=== PATIENT | male | born 1980 | race Caucasian/White ===

== ENCOUNTER 2016-08-10 22:20 | Emergency (ER) | payer MEDICAID ==
[2016-08-10] MEDS ORDERED: PROPARACAINE HCL OPTH 15ML BTL OPTH ONE (22:22)
--- NOTE | 2016-08-10 22:25 | Emergency Department Record ---
History of Present Illness - General Chief complaint: Eye Problem Stated complaint: BURNED EYES WELDING Time Seen by Provider: 08/10/16 22:25 Source: Patient - History of Present Illness Initial comments: "combo welder's ibarra" from earlier today welding while he took his goggles off to see better. No contacts, glasses, "but I need them," no glaucoma or eye disease. chief complaint: Eye pain - Related Data Home Medications Medication Instructions Recorded Confirmed Last Taken Dextroamphetamine/Amphetamine 5 mg PO BID 08/10/16 08/10/16 Unknown [Adderall 5 mg Tablet] Previous Rx's Medication Instructions Recorded Hydrocodone/Acetaminophen [[place] 1 tab PO Q6H PRN #7 tab 08/10/16 5mg/325mg] Allergies Allergy/AdvReac Type Severity Reaction Status Date / Time No Known Drug Allergies Allergy Unverified 08/10/15 08:30 Review of Systems Reviewed: No additional complaints except as noted below Constitutional: Reports: As per HPI. Denies: Chills, Fever, Malaise, Night sweats, Weakness, Weight change Eyes: Reports: As per HPI. Denies: Eye discharge, Eye pain, Photophobia, Vision change ENT: Reports: As per HPI. Denies: Congestion, Dental pain, Ear pain, Epistaxis , Hearing loss, Throat pain Respiratory: Reports: As per HPI. Denies: Cough, Dyspnea, Hemoptysis, Stridor, Wheezes Cardiovascular: Reports: As per HPI. Denies: Arrhythmia, Chest pain, Dyspnea on exertion, Edema, Murmurs, Orthopnea, Palpitations, Paroxysmal nocturnal dyspnea, Rheumatic Fever, Syncope Endocrine: Reports: As per HPI. Denies: Fatigue, Heat or cold intolerance, Polydipsia, Polyuria Gastrointestinal: Reports: As per HPI. Denies: Abdominal pain, Constipation, Diarrhea, Hematemesis, Hematochezia, Melena, Nausea, Vomiting Genitourinary: Reports: As per HPI. Denies: Dysuria, Frequency, Hematuria, Incontinence, Retention, Testicular pain, Testicular mass, Urgency Musculoskeletal: Reports: As per HPI. Denies: Arthralgia, Back pain, Gout, Joint swelling, Myalgia, Neck pain Skin: Reports: As per HPI. Denies: Bruising, Change in color, Change in hair/ nails, Lesions, Pruritus, Rash Neurological: Reports: As per HPI. Denies: Abnormal gait, Confusion, Headache, Numbness, Paresthesias, Seizure, Tingling, Tremors, Vertigo, Weakness Psychiatric: Reports: As per HPI. Denies: Anxiety, Auditory hallucinations, Depression, Homicidal thoughts, Suicidal thoughts, Visual hallucinations Hematological/Lymphatic: Reports: As per HPI. Denies: Anemia, Blood Clots, Easy bleeding, Easy bruising, Swollen glands Past Medical History - SOCIAL HISTORY Smoking Status: Current every day smoker Drug Use: None - RESPIRATORY Hx Respiratory Disorders: No - CARDIOVASCULAR Hx Cardio Disorders: No - NEURO Hx Neuro Disorders: No - GI Hx GI Disorders: No - Hx Genitourinary Disorders: No - ENDOCRINE Hx Endocrine Disorders: No - MUSCULOSKELETAL Hx Musculoskeletal Disorders: No Physical Exam - General General Appearance: Alert, Oriented x3, Cooperative, Severe distress (severe distress from eyes which resolves with alkaine drops; photophobia) - Head Head exam: Normal inspection - Eye Eye exam: Normal appearance, PERRL, Conjunctival injection, EOMI, Other (no fluorescein uptake either eye; no FB, no drainage). negative: Nystagmus, Periorbital swelling, Periorbital tenderness Pupils: Normal accommodation - ENT ENT exam: Normal exam, Mucous membranes moist, Normal external ear exam, Normal orophraynx, TM's normal bilaterally Ear exam: Normal external inspection. negative: External canal tenderness Nasal Exam: Normal inspection. negative: Discharge, Sinus tenderness Mouth exam: Normal external inspection, Tongue normal Teeth exam: Normal inspection. negative: Dental caries Throat exam: Normal inspection. negative: Tonsillar erythema, Tonsillar exudate - Neck Neck exam: Normal inspection, Full ROM. negative: Tenderness - Respiratory Respiratory exam: negative: Respiratory distress - Cardiovascular Cardiovascular Exam: Regular rate, Normal rhythm - GI/Abdominal GI/Abdominal exam: Soft. negative: Tenderness - Rectal Rectal exam: Deferred - exam: Deferred - Extremities Extremities exam: Normal inspection, Full ROM, Normal capillary refill. negative: Tenderness - Back Back exam: Reports: Normal inspection, Full ROM. Denies: Muscle spasm, Rash noted, Tenderness - Neurological Neurological exam: Alert, Normal gait, Oriented X3, Reflexes normal - Psychiatric Psychiatric exam: Normal affect, Normal mood - Skin Skin exam: Dry, Intact, Normal color, Warm Medical Decision Making - Management Options MDM Management: No Additional Work-up Planned Disposition Disposition: Discharge Clinical Impression: Welders' keratitis of both eyes Disposition: Home, Self-Care Condition: (1) Good Instructions: Corneal Flash Ibarra (ED) Additional Instructions: Two drops to each eye of antibiotic eye drops Take norco as directed as needed for pain. Off work. Do not rub eyes. Follow up with Dr. Dumont--call Friday to be rechecked. Prescriptions: Hydrocodone/Acetaminophen [[place] 5mg/325mg] 1 tab PO Q6H PRN #7 tab PRN Reason: Pain - General Referrals: AINSLEY DUMONT [MEDICAL DOCTOR] - Forms: Patient Portal Access
[2016-08-10] MEDS ORDERED: GENTAMICIN SULFATE 0.3% OPTH 5 ML BTL OPTH ONE (23:08)
[2016-08-10] MEDS ORDERED: HYDROCODONE/APAP 10/325 TABLET PO ONE (23:11)
[2016-08-10] MEDS ORDERED: HYDROCODONE/APAP 5/325MG TABLET PO ONE (23:13)
== END 2016-08-10 23:31 | disposition home or self-care (01) ==
LOC: ER 22:20
DX: H16.133 Photokeratitis, bilateral (principal); W89.8XXA Exposure to other man-made visible and ultraviolet light, initial encounter
CPT/HCPCS: 99283 ×2; J3490

== ENCOUNTER 2017-03-24 03:44 | Emergency (ER) | payer MEDICAID ==
--- NOTE | 2017-03-24 04:08 | Emergency Department Record ---
History of Present Illness - General Chief complaint: Dental Stated complaint: R SIDE TOOTHACHE Time Seen by Provider: 03/24/17 04:03 Mode of Arrival: Ambulatory - History of Present Illness Initial comments: The patient states his right lower molar began hurting tonight after eating a piece of pie. He denies f,c,swelling on his face. He states he has overall bad teeth and will got to get it pulled next week. He is requesting a dental block. MD complaint: Tooth pain Onset/Timin -: Hour(s) Location: Tooth # Severity: Severe Severity scale (1-10): 10 Context- Dental: History of dental caries Associated Symptoms: Toothache - Related Data Previous Rx's Medication Instructions Recorded Penicillin V Potassium 500 mg PO QID #39 tablet 03/24/17 Tramadol HCl [Ultram] 50 mg PO Q8H #5 tab 03/24/17 Allergies Allergy/AdvReac Type Severity Reaction Status Date / Time No Known Drug Allergies Allergy Unverified 08/10/15 08:30 Travel Screening - Travel/Exposure Within Last 30 Days Have you traveled within the last 30 days?: No Review of Systems Reviewed: No additional complaints except as noted below Constitutional: Reports: As per HPI. Denies: Chills, Fever, Malaise, Night sweats, Weakness, Weight change Eyes: Reports: As per HPI. Denies: Eye discharge, Eye pain, Photophobia, Vision change ENT: Reports: As per HPI. Denies: Congestion, Dental pain, Ear pain, Epistaxis , Hearing loss, Throat pain Respiratory: Reports: As per HPI. Denies: Cough, Dyspnea, Hemoptysis, Stridor, Wheezes Cardiovascular: Reports: As per HPI. Denies: Arrhythmia, Chest pain, Dyspnea on exertion, Edema, Murmurs, Orthopnea, Palpitations, Paroxysmal nocturnal dyspnea, Rheumatic Fever, Syncope Endocrine: Reports: As per HPI. Denies: Fatigue, Heat or cold intolerance, Polydipsia, Polyuria Gastrointestinal: Reports: As per HPI. Denies: Abdominal pain, Constipation, Diarrhea, Hematemesis, Hematochezia, Melena, Nausea, Vomiting Genitourinary: Reports: As per HPI. Denies: Dysuria, Frequency, Hematuria, Incontinence, Retention, Testicular pain, Testicular mass, Urgency Musculoskeletal: Reports: As per HPI. Denies: Arthralgia, Back pain, Gout, Joint swelling, Myalgia, Neck pain Skin: Reports: As per HPI. Denies: Bruising, Change in color, Change in hair/ nails, Lesions, Pruritus, Rash Neurological: Reports: As per HPI. Denies: Abnormal gait, Confusion, Headache, Numbness, Paresthesias, Seizure, Tingling, Tremors, Vertigo, Weakness Psychiatric: Reports: As per HPI. Denies: Anxiety, Auditory hallucinations, Depression, Homicidal thoughts, Suicidal thoughts, Visual hallucinations Hematological/Lymphatic: Reports: As per HPI. Denies: Anemia, Blood Clots, Easy bleeding, Easy bruising, Swollen glands Past Medical History - SOCIAL HISTORY Smoking Status: Current every day smoker Alcohol Use: None Drug Use: None - RESPIRATORY Hx Respiratory Disorders: No - CARDIOVASCULAR Hx Cardio Disorders: No - NEURO Hx Neuro Disorders: No - GI Hx GI Disorders: No - Hx Genitourinary Disorders: No - ENDOCRINE Hx Endocrine Disorders: No - MUSCULOSKELETAL Hx Musculoskeletal Disorders: No - PSYCH Hx Psych Problems: No - HEMATOLOGY/ONCOLOGY Hx Hematology/Oncology Disorders: No Family Medical History Any Significant Family History?: No Physical Exam - General General Appearance: Alert, Oriented x3, Cooperative, No acute distress - Head Head exam: Normal inspection - Eye Eye exam: Normal appearance, PERRL Pupils: Normal accommodation - ENT ENT exam: Normal exam, Mucous membranes moist, Normal external ear exam, Normal orophraynx, TM's normal bilaterally Ear exam: Normal external inspection. negative: External canal tenderness Nasal Exam: Normal inspection. negative: Discharge, Sinus tenderness Mouth exam: Normal external inspection, Tongue normal Teeth exam: Normal inspection, Dental tenderness # (#31), Other (overall poor dentition). negative: Dental caries Throat exam: Normal inspection. negative: Tonsillar erythema, Tonsillar exudate - Neck Neck exam: Normal inspection, Full ROM. negative: Lymphadenopathy, Meningismus , Tenderness - Respiratory Respiratory exam: Normal lung sounds bilaterally. negative: Respiratory distress - Cardiovascular Cardiovascular Exam: Regular rate, Normal rhythm - GI/Abdominal GI/Abdominal exam: Soft. negative: Tenderness - Rectal Rectal exam: Deferred - exam: Deferred - Extremities Extremities exam: Normal inspection, Full ROM, Normal capillary refill. negative: Tenderness - Back Back exam: Reports: Normal inspection, Full ROM. Denies: Muscle spasm, Rash noted, Tenderness - Neurological Neurological exam: Alert, Normal gait, Oriented X3, Reflexes normal - Psychiatric Psychiatric exam: Normal affect, Normal mood - Skin Skin exam: Dry, Intact, Normal color, Warm Course Vital Signs 03/24/17 03:51 Temperature 98.4 F Pulse Rate 98 H Respiratory 18 Rate Blood Pressure 158/133 Pulse Ox 100 - Reevaluation(s) Reevaluation #1: 4 cc total dental block of right lower 2nd molar of 2% lido mixed 1:1 with 0.5 % sensoricaine. Patient tolerated this well. 03/24/17 04:23 Medical Decision Making - Management Options MDM Management: No Additional Work-up Planned Disposition Disposition: Discharge Clinical Impression: Pain, dental Disposition: Home, Self-Care Condition: (1) Good Instructions: Dental Abscess (ED), Toothache (ED) Additional Instructions: Take Pen VK as directed until gone Ultram as directed for pain Tylenol or ibuprofen for less severe pain as directed as needed. Follow up with dentist 1 week. Prescriptions: Penicillin V Potassium 500 mg PO QID #39 tablet Tramadol HCl [Ultram] 50 mg PO Q8H #5 tab Quality - Quality Measures Quality Measures: N/A - Blood Pressure Screening Does Patient Have Any of the Following: No Blood Pressure Classification: Hypertensive Reading Systolic Measurement: 158 Diastolic Measurement: 133 Screening for High Blood Pressure: < First Hypertensive BP, F/U Documented > [ G8950] First Hypertensive Follow-up Interventions: Follow-up with rescreen GT 1 day and LT 4 weeks.
[2017-03-24] MEDS ORDERED: TRAMADOL HCL 50 MG TABLET PO ONE (04:09)
[2017-03-24] MEDS ORDERED: PENICILLIN V POTASSIUM 250 MG TAB PO ONE (04:09)
== END 2017-03-24 04:28 | disposition home or self-care (01) ==
LOC: ER 03:44
DX: K02.9 Dental caries, unspecified (principal)
CPT/HCPCS: 64400; 99283

== ENCOUNTER 2017-03-30 11:14 | Emergency (ER) | payer SELFPAY ==
--- NOTE | 2017-03-30 11:38 | Emergency Department Record ---
History of Present Illness - General Stated complaint: TOOTH PAIN Time Seen by Provider: 03/30/17 11:31 Source: Patient Mode of Arrival: Ambulatory Limitations: No limitations - History of Present Illness Initial comments: 37 yo male presents with dental pain. He was in the ED about 1 week ago with similar. He has a chronic history of dental disease. He has not seen a dentist since the last visit. No fever. No obvious swelling. No difficulty swallowing. He reports he is scheduled to see a dentist for extractions. MD complaint: Tooth pain -: Week(s) Severity: Moderate Consistency: Constant Improves with: None Worsens with: Eating Context- Dental: History of dental caries, Poor dental care - Related Data Previous Rx's Medication Instructions Recorded Penicillin V Potassium 500 mg PO QID #39 tablet 03/24/17 Tramadol HCl 50 mg PO BID #14 tab 03/30/17 Allergies Allergy/AdvReac Type Severity Reaction Status Date / Time No Known Drug Allergies Allergy Verified 03/30/17 11:38 Review of Systems Constitutional: Denies: Chills, Fever, Malaise, Weakness Eyes: Denies: Eye discharge ENT: Reports: Dental pain. Denies: Congestion, Throat pain Respiratory: Denies: Cough, Dyspnea, Hemoptysis, Stridor, Wheezes Cardiovascular: Denies: Chest pain, Palpitations, Syncope Endocrine: Denies: Fatigue Gastrointestinal: Denies: Abdominal pain, Diarrhea, Nausea Genitourinary: Denies: Discharge, Dysuria, Frequency Musculoskeletal: Denies: Arthralgia, Back pain, Joint swelling, Myalgia Skin: Denies: Bruising, Change in color, Rash Neurological: Denies: Confusion, Headache, Numbness, Tingling, Tremors, Vertigo , Weakness Psychiatric: Denies: Anxiety Hematological/Lymphatic: Denies: Blood Clots, Easy bleeding, Easy bruising Past Medical History - SOCIAL HISTORY Smoking Status: Current every day smoker Drug Use: None - RESPIRATORY Hx Respiratory Disorders: No - CARDIOVASCULAR Hx Cardio Disorders: No - NEURO Hx Neuro Disorders: No - GI Hx GI Disorders: No - Hx Genitourinary Disorders: No - ENDOCRINE Hx Endocrine Disorders: No - MUSCULOSKELETAL Hx Musculoskeletal Disorders: No - PSYCH Hx Psych Problems: No - HEMATOLOGY/ONCOLOGY Hx Hematology/Oncology Disorders: No Physical Exam - General General Appearance: Alert, Oriented x3, Cooperative, No acute distress Limitations: No limitations - Head Head exam: Atraumatic, Normal inspection - Eye Eye exam: Normal appearance. negative: Conjunctival injection, Scleral icterus - ENT ENT exam: Normal exam, Mucous membranes moist, Normal orophraynx Ear exam: Normal external inspection Nasal Exam: Normal inspection Mouth exam: Normal external inspection, Tongue normal. negative: Drooling, Muffled voice, Tongue elevation, Trismus Teeth exam: Dental caries, Dental tenderness #. negative: Normal inspection Throat exam: Normal inspection. negative: Tonsillar erythema, Tonsillar exudate Image of Mouth/Teeth: 1 - midl swelling, no pus, fillies with decay, no abscess - Neck Neck exam: Normal inspection, Full ROM. negative: Tenderness - Respiratory Respiratory exam: Normal lung sounds bilaterally. negative: Respiratory distress - Cardiovascular Cardiovascular Exam: Regular rate, Normal rhythm, Normal heart sounds - Rectal Rectal exam: Deferred - exam: Deferred - Neurological Neurological exam: Alert, Normal gait, Oriented X3 - Psychiatric Psychiatric exam: Normal affect, Normal mood - Skin Skin exam: Dry, Intact, Normal color, Warm Course - Reevaluation(s) Reevaluation #1: EMR reviewed from 03.24.17 03/30/17 11:35 03/30/17 11:51 No visible abscess. He requests a block He will continue to call for follow up I recommended PCP follow up as well. 03/30/17 11:58 Dental Block Senorcaine with Lido with epi 3ml Disposition Disposition: Discharge Clinical Impression: Pain, dental, Chronic enamel dental caries Disposition: Home, Self-Care Condition: (1) Good Instructions: Toothache (ED) Additional Instructions: continue your antibiotics as directed call your dentist tomorrow for close follow up Prescriptions: Tramadol HCl 50 mg PO BID #14 tab Forms: Patient Portal Access Time of Disposition: 11:51 Quality - Quality Measures Quality Measures: N/A - Blood Pressure Screening Does Patient Have Any of the Following: No Blood Pressure Classification: Hypertensive Reading Systolic Measurement: 158 Diastolic Measurement: 98 Screening for High Blood Pressure: < Pre-Hypertensive BP, F/U Documented > [ G8950] Pre-Hypertensive Follow-up Interventions: Referral to alternative/primary care provider.
== END 2017-03-30 11:50 | disposition home or self-care (01) ==
LOC: ER 11:14
DX: G89.29 Other chronic pain (principal); K02.9 Dental caries, unspecified
CPT/HCPCS: 99283